=== PATIENT | male | born 1955 | race Two or more races ===

== ENCOUNTER 2025-02-01 12:17 | Emergency (ER) | payer BC, SELFPAY ==
[2025-02-01 12:17] VITALS: BMI 25.8
--- NOTE | 2025-02-01 12:20 | EKG_ITS ---
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
--- NOTE | 2025-02-01 12:27 | EDRME_ITS ---
Rapid Medical Screening Exam [facility] Arrival date/time: 02/01/25 12:17 Chief Complaint: Chest Pain Vital signs: Vital Signs Temperature 98.7 F 02/01/25 12:28 Pulse Rate 72 02/01/25 12:28 Respiratory Rate 19 02/01/25 12:28 Blood Pressure 134/85 H 02/01/25 12:28 Pulse Oximetry (%) 98 02/01/25 12:28 Oxygen Delivery Method Room Air 02/01/25 12:28 E Narrative: Cough, left chest wall pain, mild sob x8 days. Reports worsening cp with cough, deep breaths, palpation.
[2025-02-01 12:28] VITALS: BP 134/85; PULSE 72; RESP 19; TEMP 37.1; O2SAT 98
--- NOTE | 2025-02-01 12:28 | XR_ITS ---
Examination: PA chest single view Technique: Upright PA chest single view Date and time: February 01, 2025, 12:46 PM Indications: Coughing left chest wall pain shortness of breath beginning 8 days ago Findings: Mild prominence of ventricle Mild ectasia thoracic aorta. Accentuation basilar bronchovascular markings. No lobar pneumonia The osseous structures are intact Impression: Basilar bronchitis pattern
[2025-02-01 13:06] LABS: Basophils # (Auto) 0.0 Thou/mm3 (0.0-0.2); Basophils % (Auto) 0 % (0-2.5); Eosinophils # (Auto) 0.0 Thou/mm3 (0.0-0.5); Eosinophils % (Auto) 1 % (0-10); Hematocrit 43.3 % (41.0-53.0); Hemoglobin 14.5 g/dL (13.5-16.0); Immature Granulocytes Auto 0.01 Thou/mm3 (0.00-0.00); Lymphocytes # (Auto) 1.1 Thou/mm3 (1.0-4.8); Lymphocytes % (Auto) 16 % (10-50); Mean Corpuscular HGB Conc 33.5 g/dl (31.0-37.0); Mean Corpuscular Hemoglobin 30.1 pg (25.0-35.0); Mean Corpuscular Volume 90 fL (80-100); Monocytes # (Auto) 0.7 Thou/mm3 (0.0-0.8); Monocytes % (Auto) 11 % (0-12); Neutrophils # (Auto) 4.8 Thou/mm3 (1.8-7.7); Neutrophils % (Auto) 72 % (37-80); Nucleated Red Blood Cell # 0.00 Thou/mm3 (0.00-0.00); Nucleated Red Blood Cell % 0 /100 WBC (0); Platelet Count 238 Thou/mm3 (140-440); RDW Standard Deviation 43.8 fL (35.1-43.9); Red Blood Count 4.81 Miln/mm3 (4.50-5.90); White Blood Count 6.8 Thou/mm3 (3.8-10.6)
[2025-02-01 13:18] LABS: B-Type Natriuretic Peptide 48 pg/mL (0-100)
[2025-02-01 13:20] LABS: Alanine Aminotransferase 20 U/L (10-49); Albumin, Serum 4.7 gm/dL (3.4-4.8); Albumin/Globulin Ratio 1.8 (1.2-2.2); Alkaline Phosphatase 62 U/L (46-116); Anion Gap 7 (7-16); Aspartate Amino Transferase 22 U/L (0-34); BUN/Creatinine Ratio 15 Ratio (12-20); Bilirubin,Total 0.6 mg/dL (0.3-1.2); Blood Urea Nitrogen 12 mg/dL (9-23); Calcium 9.9 mg/dL (8.3-10.6); Calcium (Corrected) 9.9 mg/dL (8.5-10.1); Carbon Dioxide 28.6 mMol/L (20.0-31.0); Chloride 106 mMol/L (98-107); Creatinine (Component) 0.8 mg/dL (0.6-1.3); Estimated Creatinine Clearance 86.7 mL/min (>60); Globulin 2.6 gm/dL (2.3-3.5); Glucose 112 mg/dL (74-106); Osmolality,Calculated 283 (275-295); Potassium 4.0 mMol/L (3.4-5.1); Sodium 142 mMol/L (136-145); Total Protein 7.3 gm/dL (5.7-8.2); Troponin I < 0.002 ng/mL (0.0-0.045); eGFR > 60 See Note
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
[2025-02-01 14:03] VITALS: BP 135/79; PULSE 72; RESP 18; TEMP 36.6; O2SAT 96
== END 2025-02-01 14:05 | disposition home or self-care (01) ==
PROVIDERS: Physician Assistant; Emergency Provider Emergency Medicine; PCP Family Medicine
DX: J40 Bronchitis, not specified as acute or chronic (principal); I44.0 Atrioventricular block, first degree
CPT/HCPCS: 36415; 71045; 80053; 83880; 84484; 85025; 93005; 99283